=== PATIENT | female | born 1980 | race Caucasian/White ===

== ENCOUNTER 2020-03-26 04:58 | Outpatient (REF) | payer OTHER, SELFPAY ==
[2020-03-26 06:59] LABS: SARS COV2 PCR INHOUSE NEGATIVE (Negative)
== END 2020-03-26 04:59 | disposition home or self-care (01) ==
LOC: HO.LAB 04:58
PROVIDERS: Visit Provider Internal Medicine
DX: Z20.828 Contact with and (suspected) exposure to other viral communicable diseases (principal)
CPT/HCPCS: 87635

== ENCOUNTER 2020-03-30 09:53 | Outpatient (REF) | payer OTHER, SELFPAY | END 2020-03-30 09:54 | disposition home or self-care (01) | LOC: HO.LAB 09:53 | PROVIDERS: Visit Provider Internal Medicine | DX: Z20.828 Contact with and (suspected) exposure to other viral communicable diseases (principal) | CPT/HCPCS: 87635 ==

== ENCOUNTER 2024-04-23 03:42 | Inpatient (IN) | payer OTHER, SELFPAY ==
[2024-04-23] VITALS (19 sets, daily range): BP systolic 94–138; BP diastolic 30–84; PULSE 71–107; RESP 14–18; TEMP 36.5–37.2; O2SAT 91–99; BMI 47.0; BMI 47.1; BMI 50.4
--- NOTE | ~2024-04-23 | CT_ITS ---
EXAMINATION: CT ABDOMEN AND PELVIS WITH CONTRAST CLINICAL INFORMATION: Right lower quadrant pain. Question appendicitis COMPARISON: None available. TECHNIQUE: Multidetector volumetric images were obtained from the superior aspect of the liver through the pubic symphysis following administration 98 mL of Omnipaque 350 intravenous contrast. Sagittal and coronal reformatted images were obtained on the technologist's workstation. Oral contrast: No This CT examination was performed using dose optimization techniques as appropriate, variously including the following: *Automated exposure control *Adjustment of mA and/or kV according to patient size (this includes techniques or standardized protocols for targeted exams where dose is matched to indication/reason for exam; i.e. extremities or head) *Use of iterative reconstruction technique DLP: 1099 mGy-cm FINDINGS: LUNG BASES: The visualized lung bases are unremarkable. LIVER, GALLBLADDER, AND BILIARY TREE: The liver is normal in size, shape, and attenuation. No focal hepatic lesion or biliary ductal dilatation is present. The gallbladder is unremarkable with no evidence of radiopaque gallstones, gallbladder wall thickening, or obvious pericholecystic inflammatory changes. PANCREAS: Unremarkable. SPLEEN: Single punctate calcification which may represent a chronic calcified granuloma. Spleen is normal in size. ADRENAL GLANDS: Unremarkable. KIDNEYS AND URETERS: The kidneys are normal in size, shape, and attenuation. No hydronephrosis, hydroureter, or calculi seen. No perinephric stranding. BLADDER: Unremarkable. GASTROINTESTINAL TRACT: Mild colonic diverticulosis. The appendix is abnormally enlarged with an outer wall diameter of 17 mm. Reticulation of the knees appendiceal fat is noted. No free intraperitoneal fluid or gas collections. Vague hyperdensity is present in the lumen of the base of the appendix over a 7 mm diameter region may represent an appendicolith. ABDOMINAL WALL: No significant hernia is appreciated. LYMPH NODES: Normal. VASCULAR: Unremarkable. PELVIC VISCERA: Normal appearance of the uterus. No adnexal lesions. OSSEOUS STRUCTURES: No suspicious skeletal lesions. Partially visualized moderate posterior broad-based disc-osteophyte complex L5-S1. CT/CT abdomen pelvis w IV con IMPRESSION: 1. Acute uncomplicated appendicitis. The appendix is abnormally enlarged with an outer wall diameter of 17 mm. Inflammatory changes of the mesoappendix are present. No evidence of appendiceal perforation. A possible 7 mm diameter appendicolith is present in the lumen of the base of the appendix. 2. Mild colonic diverticulosis. Partially visualized moderate posterior broad-based disc-osteophyte complex at L5-S1. Electronically signed by: Stone Benitez MD 04/23/2024 06:46 AM DONY SAUNDERS
[2024-04-23 04:05] LABS: Basophils Absolute Auto 0.1 X10*3/uL (0.0-0.2); Basophils Percent Auto 0.6 % (0-2); Eosinophils Absolute Auto 0.3 X10*3/uL (0.0-0.4); Eosinophils Percent Auto 1.5 % (0-4); Hemoglobin 12.9 g/dl (12.0-16.0); Imm Gran Abs Auto 0.08 X10*3/uL (0.00-0.03); Imm Gran Pct Auto 0.5 % (0.0-0.4); Lymphocytes Absolute Auto 1.8 X10*3/uL (1.2-4.9); Lymphocytes Percent Auto 10.6 % (20-40); MANUAL DIFF FLAG NO; Mean Corpuscular HGB Conc 34.9 g/dl (31.0-35.0); Mean Corpuscular Hemoglobin 29.5 pg (27.0-33.0); Mean Corpuscular Volume 84.7 fL (80.0-98.0); Mean Platelet Volume 9.9 fL (9.4-12.3); Monocytes Absolute Auto 0.9 X10*3/uL (0.1-1.2); Monocytes Percent Auto 5.3 % (2-11); Neutrophils Absolute Auto 13.8 x10*3/uL (2.0-8.3); Neutrophils Percent Auto 81.5 % (45-73); Platelet Count 364 X10*3/uL (160-400); Red Blood Count 4.37 X10*6/uL (4.20-5.50); Red Cell Distribution Width 12.8 % (11.0-16.0); White Blood Count 16.9 X10*3/uL (4.8-10.8)
--- NOTE | 2024-04-23 04:18 | ED.ABDPAIN ---
HPI - Abdominal Pain General Chief Complaint: Abdominal Pain Stated Complaint: abd pain Time Seen by Provider: 04/23/24 04:04 Source: patient Mode of arrival: ambulatory Limitations: no limitations History of Present Illness ED Provider: anders VALENZUELA narrative: Patient with no significant past medical history noticed pain since 04:00 yesterday woke up from sleep with pain throughout the day patient continued to have pain in right side started upper abdomen obvious in lower abdomen associated with nausea poor appetite pain gets worse on ambulation no fever no chills no diarrhea no history of gallstones or kidney stones no urinary complaints Related Data Home Medications ?Medication ?Instructions ?Recorded ?Confirmed chlorthalidone 25 mg tablet 25 mg PO DAILY 04/23/24 lisinopril 40 mg tablet 40 mg PO DAILY 04/23/24 Allergies Allergy/AdvReac Type Severity Reaction Status Date / Time banana Allergy Itching Verified 04/23/24 03:53 peanut Allergy Itching Verified 04/23/24 03:53 Review of Systems Review of Systems Yes all other systems are reviewed and are negative PMFSH Social History Social History Smoked in Last 30 Days: No Use of substances other than those prescribed or required for medical reasons: No Advance Directives: No Advance Directives Information Provided: No Physical Exam ED Vital Signs: Vital Signs - 24 hr 04/23/24 03:50 04/23/24 06:23 04/23/24 06:35 Temperature 98.2 F 98.3 F Pulse Rate 99 73 Respiratory Rate 18 16 Blood Pressure 131/84 100/56 L 112/68 Pulse Oximetry 94 97 Oxygen Delivery Method Room Air Room Air 04/23/24 07:13 Temperature Pulse Rate Respiratory Rate 16 Blood Pressure Pulse Oximetry Oxygen Delivery Method BMI result Body Mass Index 47.0 Appearance: Alert. Oriented X3. No acute distress. Eyes: No pallor or icterus ENT: Pharynx normal. Oral Mucosa moist Neck: Normal inspection. Neck supple. CVS: Normal heart rate and rhythm. Pulses normal. Respiratory: No respiratory distress. Equal air entry bilateral, no wheezing/rales/rhonchi Abdomen: Soft , tenderness right lower quadrant with guarding and rebound tenderness also mild tenderness right upper quadrant Bowel sounds are present, no mass palpable, no CVA tenderness Skin: Skin warm and dry. Normal skin color. Normal skin turgor. Extremities: No lower extremity edema. No calf tenderness Neuro: Oriented X 3. No motor deficit. Medical Decision Making Medical Decision Making [facility] Narrative: Patient with acute uncomplicated appendicitis will admit to surgical team case discussed with Dr. Chairez Differential Diagnosis Differential Diagnoses: The differential diagnosis associated with the presentation includes Appendicitis/diverticulitis/cholelithiasis Consult Healthcare Provider Management of the patient was discussed with: Diesel Technician Mechanic Lab Data [facility] Lab Attestation statement: I reviewed the patient's lab results. 04/23/24 04:01 04/23/24 04:01 Labs: Lab Results 04/23/24 04/23/24 04/23/24 Range/Units 04:01 04:01 05:01 WBC 16.9 H (4.8-10.8) X10*3/uL RBC 4.37 (4.20-5.50) X10*6/uL Hgb 12.9 (12.0-16.0) g/dl Hct 37.0 (37.0-47.0) % MCV 84.7 (80.0-98.0) fL MCH 29.5 (27.0-33.0) pg MCHC 34.9 (31.0-35.0) g/dl RDW 12.8 (11.0-16.0) % Plt Count 364 (160-400) X10*3/uL MPV 9.9 (9.4-12.3) fL Immature Gran % (Auto) 0.5 H (0.0-0.4) % Neut % (Auto) 81.5 H (45-73) % Lymph % (Auto) 10.6 L (20-40) % [place] % (Auto) 5.3 (2-11) % Eos % (Auto) 1.5 (0-4) % Baso % (Auto) 0.6 (0-2) % Lymph # (Auto) 1.8 (1.2-4.9) X10*3/uL [place] # (Auto) 0.9 (0.1-1.2) X10*3/uL Eos # (Auto) 0.3 (0.0-0.4) X10*3/uL Baso # (Auto) 0.1 (0.0-0.2) X10*3/uL Abs Immat Gran (auto) 0.08 H (0.00-0.03) X10*3/uL Absolute Neuts (auto) 13.8 H (2.0-8.3) x10*3/uL Absolute Nucleated RBC 0.000 (0.0-0.012) X10*3/uL Nucleated RBC % (auto) 0.0 (0.0-0.2) /100WBC Sodium 135 (135-145) mmol/L Potassium 3.9 (3.3-5.1) mmol/L Chloride 102 (96-108) mmol/L Carbon Dioxide 24 (22-29) mmol/L Anion Gap 13 (12-20) BUN 17 H (9-16) mg/dL Creatinine 1.07 (0.5-1.4) mg/dL Estim Creat Clear Calc 94.8 Estimated GFR 55 Random Glucose 187 H (60-115) mg/dL Lactic Acid 1.7 (0.5-2.0) mmol/L Calcium 9.6 (8.4-10.2) mg/dL Total Bilirubin 0.5 (0.0-1.0) mg/dL Direct Bilirubin 0.2 (0.0-0.5) mg/dL AST 21 (5-31) U/L ALT 25 (0-31) U/L Alkaline Phosphatase 112 (39-117) U/L Total Protein 7.0 (6.5-8.0) g/dL Albumin 4.1 (3.5-5.0) g/dL Amylase 34 Cancelled (28-100) U/L Lipase 20 (8-78) U/L Urine Color Yellow Urine Appearance Clear Urine pH 5.5 (5.0-9.0) Ur Specific [place] 1.020 (1.005-1.025) Urine Protein Negative (Neg-Trace) mg/dL Urine Glucose (UA) Negative (Negative) mg/dL Urine Ketones Negative (Negative) mg/dL Urine Blood Negative (Negative) Urine Nitrite Negative (Negative) Ur Leukocyte Esterase Negative (Negative) Urine RBC 0-2 (0-2) /HPF Urine WBC 0-5 (0-5) /HPF Ur Squamous Epith Cells 0-2 (0-2) /HPF Urine Bacteria Trace (None Seen) Hyaline Casts 0-2 (0-2) /LPF Urine Test NEGATIVE (NEGATIVE) Independent Interpretation I performed an independent interpretation of an: CT Scan Radiology Impression Discussion of test interpretation with radiology: I have reviewed the radiologist's reading. Radiologist Impression: [address] [address] [address] Scan Report Signed with [place] Patient: Lenin Jaime MR#: [id number] : 1980 Acct:[id number] Age/Sex: 44 / F ADM Date: 04/23/24 Loc: HO.ED Attending Dr: Ordering Physician: Roge Cooper MD Date of Service: 04/23/24 Procedure(s): CT abdomen pelvis w IV con Accession Number(s): [id number] cc: Kavita Carmen, CARYN; Roge Cooper MD~ ADDENDUM ADDENDUM #1 This critical result was discussed with Roge Cooper MD MD by telephone at 04/23/2024 6:57 AM EST and it was ascertained that the content and urgency of the report was understood at the time of direct communication. Electronically signed by: Stone Benitez MD 04/23/2024 06:57 AM EST Addendum Dictated By: Stone Benitez MD Addendum Signed By: <Electronically signed by Stone Benitez MD in OV> 04/23/24 06 Addendum Cosigned By: DD/ TD/TT: 04/23/24 EXAMINATION: CT ABDOMEN AND PELVIS WITH CONTRAST CLINICAL INFORMATION: Right lower quadrant pain. Question appendicitis COMPARISON: None available. TECHNIQUE: Multidetector volumetric images were obtained from the superior aspect of the liver through the pubic symphysis following administration 98 mL of Omnipaque 350 intravenous contrast. Sagittal and coronal reformatted images were obtained on the technologist's workstation. Oral contrast: No This CT examination was performed using dose optimization techniques as appropriate, variously including the following: *Automated exposure control *Adjustment of mA and/or kV according to patient size (this includes techniques or standardized protocols for targeted exams where dose is matched to indication/reason for exam; i.e. extremities or head) *Use of iterative reconstruction technique DLP: 1099 mGy-cm FINDINGS: LUNG BASES: The visualized lung bases are unremarkable. LIVER, GALLBLADDER, AND BILIARY TREE: The liver is normal in size, shape, and attenuation. No focal hepatic lesion or biliary ductal dilatation is present. The gallbladder is unremarkable with no evidence of radiopaque gallstones, gallbladder wall thickening, or obvious pericholecystic inflammatory changes. PANCREAS: Unremarkable. SPLEEN: Single punctate calcification which may represent a chronic calcified granuloma. Spleen is normal in size. ADRENAL GLANDS: Unremarkable. KIDNEYS AND URETERS: The kidneys are normal in size, shape, and attenuation. No hydronephrosis, hydroureter, or calculi seen. No perinephric stranding. BLADDER: Unremarkable. GASTROINTESTINAL TRACT: Mild colonic diverticulosis. The appendix is abnormally enlarged with an outer wall diameter of 17 mm. Reticulation of the knees appendiceal fat is noted. No free intraperitoneal fluid or gas collections. Vague hyperdensity is present in the lumen of the base of the appendix over a 7 mm diameter region may represent an appendicolith. ABDOMINAL WALL: No significant hernia is appreciated. LYMPH NODES: Normal. VASCULAR: Unremarkable. PELVIC VISCERA: Normal appearance of the uterus. No adnexal lesions. OSSEOUS STRUCTURES: No suspicious skeletal lesions. Partially visualized moderate posterior broad-based disc-osteophyte complex L5-S1. CT/CT abdomen pelvis w IV con IMPRESSION: 1. Acute uncomplicated appendicitis. The appendix is abnormally enlarged with an outer wall diameter of 17 mm. Inflammatory changes of the mesoappendix are present. No evidence of appendiceal perforation. A possible 7 mm diameter appendicolith is present in the lumen of the base of the appendix. 2. Mild colonic diverticulosis. Partially visualized moderate posterior broad-based disc-osteophyte complex at L5-S1. Electronically signed by: Stone Benitez MD 04/23/2024 06:46 AM [facility] Medications Administered Discontinued Medications Generic Name Dose Route Start Last Admin Trade Name Freq PRN Reason Stop Dose Admin Sodium Chloride 1,000 mls @ 999 mls/hr 04/23/24 04:22 04/23/24 06:59 Ns IV 04/23/24 05:22 Infused .Q1H1M ONE Infusion Piperacillin Sod/Tazobactam 50 mls @ 100 mls/hr 04/23/24 06:01 04/23/24 06:59 Sod 3.375 gm/ Sodium Chloride IV 04/23/24 06:30 Infused ONCE ONE Infusion Iohexol 100 ml 04/23/24 06:00 04/23/24 06:02 Iohexol 350 Mg/Ml 100 Ml Infus..Btl IV 04/23/24 06:01 100 ml ONCE ONE Administration Morphine Sulfate 4 mg 04/23/24 04:22 04/23/24 05:08 Morphine Sulfate 4 Mg/Ml Cartridge IVPUSH 04/23/24 04:23 4 mg ONCE ONE Administration Protocol Morphine Sulfate 4 mg 04/23/24 07:06 04/23/24 07:13 Morphine Sulfate 4 Mg/Ml Cartridge IVPUSH 04/23/24 07:07 4 mg ONCE ONE Administration Protocol Ondansetron HCl 4 mg 04/23/24 04:22 04/23/24 05:08 Ondansetron Hcl 4 Mg/2 Ml Vial IVPUSH 04/23/24 04:23 4 mg ONCE ONE Administration Ondansetron HCl 4 mg 04/23/24 07:06 04/23/24 07:11 Ondansetron Hcl 4 Mg/2 Ml Vial IVPUSH 04/23/24 07:07 4 mg ONCE ONE Administration Discharge Plan Discharge Clinical Impression: Acute appendicitis Prescriptions: No Action chlorthalidone 25 mg tablet 25 mg PO DAILY lisinopril 40 mg tablet 40 mg PO DAILY Print Language: [place]
[2024-04-23 04:22] LABS: Alanine Aminotransferase 25 U/L (0-31); Albumin Level 4.1 g/dL (3.5-5.0); Alkaline Phosphatase 112 U/L (39-117); Amylase 34 U/L (28-100); Anion Gap 13 (12-20); Aspartate Amino Transferase 21 U/L (5-31); Bilirubin Direct 0.2 mg/dL (0.0-0.5); Bilirubin Total 0.5 mg/dL (0.0-1.0); Blood Urea Nitrogen 17 mg/dL (9-16); Calcium 9.6 mg/dL (8.4-10.2); Carbon Dioxide 24 mmol/L (22-29); Chloride 102 mmol/L (96-108); Creatinine Clr Calc Pharmacy 94.8; Estimated Glomerular Filt Rate 55; Glucose Random 187 mg/dL (60-115); Lipase 20 U/L (8-78); Potassium 3.9 mmol/L (3.3-5.1); Sodium 135 mmol/L (135-145)
[2024-04-23 05:08] LABS: Appearance Urine Clear; Color Urine Yellow; Glucose Urine UA Negative (Negative); Leukocyte Esterase Urine Negative (Negative); Nitrite Urine Negative (Negative); PH 5.5 (5.0-9.0); Urine Blood Negative (Negative); Urine Ketones Negative (Negative); Urine Protein Negative (Neg-Trace)
[2024-04-23] MEDS: 0.9 % Sodium Chloride 1,000 ML 999 ML IV (05:08)
[2024-04-23] MEDS: ondansetron HCL 4 MG/2 ML VIAL IVPUSH ×3 (05:08→16:36)
[2024-04-23] MEDS: Morphine Sulfate 4 MG/ML CARTRIDGE IVPUSH ×2 (05:08→07:13)
[2024-04-23 05:11] LABS: Bacteria Urine Trace (None Seen); Hyaline Casts Urine 0-2 /LPF (0-2); RBC Urine 0-2 /HPF (0-2); Squamous Epithelial Cell Urine 0-2 /HPF (0-2); UPreg QC Valid YES; Urine Pregnancy NEGATIVE (NEGATIVE); WBC Urine 0-5 /HPF (0-5)
[2024-04-23 05:27] LABS: Lactic Acid 1.7 mmol/L (0.5-2.0)
[2024-04-23] MEDS: iohexoL 350 MG/ML 100 ML INFUS..BTL IV (06:02)
[2024-04-23] MEDS: Piperacillin Sodium/Tazobactam 3.375 GM in 0.9 % Sodium Chloride 50 ML IV ×4 (06:20→23:23)
--- NOTE | 2024-04-23 06:33 | PC.NURSE ---
per md mcnamara no blood cultures. iv abx given. ivf infusing.
--- NOTE | 2024-04-23 08:25 | PC.NURSE ---
Provider aware of low BP, fluids started. Pt alert and oriented, pain 8/10 on right sided ABD
[2024-04-23] MEDS: Prochlorperazine Edisylate 10 MG/2 ML VIAL IVPUSH (08:32)
[2024-04-23] MEDS: fentaNYL citrate/PF 100 MCG/2 ML VIAL 50 MCG IVPUSH (08:33)
[2024-04-23] MEDS: Lactated Ringers 1,000 ML 999 ML IV (08:36)
--- NOTE | 2024-04-23 08:52 | PC.NURSE ---
Pt placed on 2L o2 NC due to desats into 92%, improved quickly
--- NOTE | 2024-04-23 10:01 | PHA.MEDREC ---
Addendum entered by Sarthak Correia 04/23/24 10:12: reviewed Original Note: Pharmacy Consult ? Medication Reconciliation Pharmacy has completed the medication reconciliation. Spoke to patient to confirm med list. Patient was able to tell me what medications she takes. The last time she took her medications was 04/23/24 in the morning.
[2024-04-23] MEDS: 0.9 % Sodium Chloride 1,000 ML 100 ML IVCONT ×2 (10:10→20:42)
--- NOTE | 2024-04-23 11:04 | PM.HPGS ---
History of Present Illness History of Present Illness Date of Service: 04/23/24 Chief complaint: abdo pain Narrative: Lenin Jaime is a 44 year old female who comes in after having abdominal pain which started yesterday more in the upper right side of her abdomen but now located to the right lower quadrant she was little concerned for appendicitis. Denies any fevers to throw up once no unusual diet or sick contacts. Here in the emergency room her white count is elevated and CT scan of her abdomen and pelvis shows thickened inflamed appendix consistent with appendicitis. Review of Systems Review of Systems: Yes all other systems are reviewed and are negative [facility] Social History Social History Smoked in Last 30 Days: No Use of substances other than those prescribed or required for medical reasons: No Advance Directives: No Advance Directives Information Provided: No Meds Allergies Allergy/AdvReac Type Severity Reaction Status Date / Time banana Allergy Itching Verified 04/23/24 03:53 peanut Allergy Itching Verified 04/23/24 03:53 Active Medications: Current Medications Acetaminophen (Acetaminophen 325 Mg Tablet) 650 mg PO Q6H PRN PRN Reason: Pain, Mild (Pain Scale 1-3), fever or headache Sodium Chloride (Ns) 1,000 mls @ 100 mls/hr IVCONT .Q10H [facility] Last Admin: 04/23/24 10:10 Dose: 100 mls/hr Piperacillin Sod/Tazobactam (Sod 3.375 gm/ Sodium Chloride) 50 mls @ 100 mls/hr IV Q6H A[facility] Melatonin (Melatonin 3 Mg Tablet) 6 mg PO BEDTIME PRN PRN Reason: Insomnia Morphine Sulfate (Morphine Sulfate 4 Mg/Ml Cartridge) 3 mg IVPUSH Q4H PRN; Protocol PRN Reason: Pain, Severe (Pain Scale 7-10) Sodium Chloride (0.9 % Sodium Chloride Flush 3 Ml Syringe) 3 ml IVFLUSH QSHIFT [facility] Home Medications ?Medication ?Instructions ?Recorded ?Confirmed ?Last Taken ?Type chlorthalidone 25 mg tablet 25 mg PO DAILY 04/23/24 04/23/24 04/22/24 History cholecalciferol (vitamin D3) 50 50 mcg PO DAILY 04/23/24 04/23/24 04/22/24 History mcg (2,000 unit) tablet (Vitamin D3) famotidine 20 mg tablet 20 mg PO DAILY 04/23/24 04/23/24 04/22/24 History lisinopril 40 mg tablet 40 mg PO DAILY 04/23/24 04/23/24 04/22/24 History Physical Exam Vital Signs: Vital Signs: Last Vital Signs Temp 98 F 04/23/24 10:54 Pulse 79 04/23/24 10:54 Resp 14 04/23/24 10:54 BP 105/44 L 04/23/24 10:54 Pulse Ox 99 04/23/24 10:54 O2 Del Method Nasal Cannula 04/23/24 10:54 O2 Flow Rate 2 04/23/24 10:54 BMI result Body Mass Index 47.0 Const: General: cooperative, healthy appearing, comfortable and acute distress mild Nutritional Appearance: obese Orientation/consciousness: oriented to person, oriented to place and oriented to time Neck: Other: Soft and supple Resp: Effort & Inspection: normal respiratory effort and able to speak in complete sentences Auscultation: clear to auscultation bilaterally Cardio: Rate: regular rate Rhythm: regular rhythm GI: Other: Abdomen is soft nondistended tender in the right lower quadrant with guarding rebound tenderness to the right lower quadrant active bowel sounds Skin: Other: Nonicteric Neuro: General: oriented to person, oriented to place and oriented to time Extrem: General: Yes normal to inspection Psych: Appearance: grossly normal Mental Status: mental status grossly normal Speech and movement: Normal speech and movement present Affect: normal affect Attitude: cooperative Thought process: Normal thought process present Thought content: Normal thought content present Insight: Good insight present (Psych) Judgement: Good judgement present (Psych) Results Results Labs: Short CBC 04/23/24 Range/Units 04:01 WBC 16.9 H (4.8-10.8) X10*3/uL Hgb 12.9 (12.0-16.0) g/dl Hct 37.0 (37.0-47.0) % Plt Count 364 (160-400) X10*3/uL BMP 04/23/24 04:01 Sodium 135 Potassium 3.9 Chloride 102 Carbon Dioxide 24 BUN 17 H Creatinine 1.07 Calcium 9.6 Liver Function 04/23/24 Range/Units 04:01 Total Bilirubin 0.5 (0.0-1.0) mg/dL Direct Bilirubin 0.2 (0.0-0.5) mg/dL AST 21 (5-31) U/L ALT 25 (0-31) U/L Alkaline Phosphatase 112 (39-117) U/L Albumin 4.1 (3.5-5.0) g/dL Urine 04/23/24 Range/Units 05:01 Urine Color Yellow Urine Appearance Clear Urine pH 5.5 (5.0-9.0) Ur Specific [place] 1.020 (1.005-1.025) Urine Protein Negative (Neg-Trace) mg/dL Urine Glucose (UA) Negative (Negative) mg/dL Urine Test NEGATIVE (NEGATIVE) Abdomen CT scan report/results: report reviewed and image reviewed CT scan - pelvis: report reviewed and image reviewed Assessment and Plan (1) Acute appendicitis: Status: Acute Plan 44-year-old female with right lower quadrant pain elevated white count CT scan revealing distended thickened appendix all consistent with acute appendicitis. Plan to admit NPO IV fluids IV Zosyn IV pain meds and plan for laparoscopic appendectomy later today. Risks and benefits were discussed with the patient including but not limited to bleeding infection possible bowel injury possible open procedure possible stump leak and she agrees to proceed Quality Stroke Does the patient have a stroke diagnosis?: No VTE Prior VTE?: No VTE Risk Level:: Surgical - low VTE Device Contraindication: N/A - Device Ordered VTE Drug Contraindication: Treatment Not Indicated Procedures Date of Service Date of Service: 04/23/24
--- NOTE | 2024-04-23 14:15 | PC.NURSE ---
Report given to TREVOR Huff @[id number]
[2024-04-23] MEDS: Morphine Sulfate 4 MG/ML CARTRIDGE 3 MG IVPUSH (14:28)
--- NOTE | 2024-04-23 16:14 | P.CONAN_ITS ---
HPI - Anesthesia Eval Consult details Narrative: 44 yo female patient for Laparoscopic Appendectomy PMFSH Active Problems Active Problems: All Active Problems Acute appendicitis (Acute) HTN GERD Morbid Obesity BMI 47 Denies ISABEL Past Medical History Patient : No Family History Family history of problems with anesthesia: No Surgical History History of Problems with Anesthesia: No Social History Social History Are you a primary mall plant caretaker to a significant other at home: No Do you presently have visiting nurse or other home services: No Comment: SSA 00 Patient Tobacco Use Status: Never used Tobacco Meds Allergies Allergy/AdvReac Type Severity Reaction Status Date / Time banana Allergy Itching Verified 04/23/24 03:53 peanut Allergy Itching Verified 04/23/24 03:53 Active Medications: Current Medications Acetaminophen (Acetaminophen 325 Mg Tablet) 650 mg PO Q6H PRN PRN Reason: Pain, Mild (Pain Scale 1-3), fever or headache Sodium Chloride (Ns) 1,000 mls @ 100 mls/hr IVCONT .Q10H [facility] Last Admin: 04/23/24 10:10 Dose: 100 mls/hr Piperacillin Sod/Tazobactam (Sod 3.375 gm/ Sodium Chloride) 50 mls @ 100 mls/hr IV Q6H [facility] Last Infusion: 04/23/24 13:40 Dose: Infused Melatonin (Melatonin 3 Mg Tablet) 6 mg PO BEDTIME PRN PRN Reason: Insomnia Morphine Sulfate (Morphine Sulfate 4 Mg/Ml Cartridge) 3 mg IVPUSH Q4H PRN; Protocol PRN Reason: Pain, Severe (Pain Scale 7-10) Last Admin: 04/23/24 14:28 Dose: 3 mg Sodium Chloride (0.9 % Sodium Chloride Flush 3 Ml Syringe) 3 ml IVFLUSH QSHIFT [facility] Home Medications ?Medication ?Instructions ?Recorded ?Confirmed ?Last Taken ?Type chlorthalidone 25 mg tablet 25 mg PO DAILY 04/23/24 04/23/24 04/22/24 History cholecalciferol (vitamin D3) 50 50 mcg PO DAILY 04/23/24 04/23/24 04/22/24 History mcg (2,000 unit) tablet (Vitamin D3) famotidine 20 mg tablet 20 mg PO DAILY 04/23/24 04/23/24 04/22/24 History lisinopril 40 mg tablet 40 mg PO DAILY 04/23/24 04/23/24 04/22/24 History Exam Height,Weight and Vital Signs: Height 5 ft 7 in Weight 136.253 kg Last Vital Signs Temp 98 F 04/23/24 10:54 Pulse 102 H 04/23/24 14:18 Resp 16 04/23/24 14:18 BP 116/75 04/23/24 14:18 Pulse Ox 94 04/23/24 14:18 O2 Del Method Room Air 04/23/24 14:18 O2 Flow Rate 2 04/23/24 10:54 Temp Pulse Resp BP Pulse Ox O2 Del Method O2 Flow Rate 98.9 F 85 16 138/71 95 Room Air 2 04/23/24 16:58 04/23/24 16:58 04/23/24 16:58 04/23/24 16:58 04/23/24 16:58 04/23/24 16:58 04/23/24 10:54 Pertinent Lab Results Pertinent Lab Results: Laboratory Tests 04/23/24 04/23/24 04/23/24 04:01 04:01 05:01 WBC 16.9 H RBC 4.37 Hgb 12.9 Hct 37.0 MCV 84.7 MCH 29.5 MCHC 34.9 RDW 12.8 Plt Count 364 MPV 9.9 Immature Gran % (Auto) 0.5 H Neut % (Auto) 81.5 H Lymph % (Auto) 10.6 L [place] % (Auto) 5.3 Eos % (Auto) 1.5 Baso % (Auto) 0.6 Lymph # (Auto) 1.8 [place] # (Auto) 0.9 Eos # (Auto) 0.3 Baso # (Auto) 0.1 Abs Immat Gran (auto) 0.08 H Absolute Neuts (auto) 13.8 H Absolute Nucleated RBC 0.000 Nucleated RBC % (auto) 0.0 Sodium 135 Potassium 3.9 Chloride 102 Carbon Dioxide 24 Anion Gap 13 BUN 17 H Creatinine 1.07 Estim Creat Clear Calc 94.8 Estimated GFR 55 Random Glucose 187 H Lactic Acid 1.7 Calcium 9.6 Total Bilirubin 0.5 Direct Bilirubin 0.2 AST 21 ALT 25 Alkaline Phosphatase 112 Total Protein 7.0 Albumin 4.1 Amylase 34 Cancelled Lipase 20 Urine Color Yellow Urine Appearance Clear Urine pH 5.5 Ur Specific [place] 1.020 Urine Protein Negative Urine Glucose (UA) Negative Urine Ketones Negative Urine Blood Negative Urine Nitrite Negative Ur Leukocyte Esterase Negative Urine RBC 0-2 Urine WBC 0-5 Ur Squamous Epith Cells 0-2 Urine Bacteria Trace Hyaline Casts 0-2 Urine Test NEGATIVE Airway Mallampati Class: II TM Dist: >3cm Neck ROM: Full Loose/Missing/Broken Teeth: No (Crowns intact. Denies broken or loose teeth) Heart: RRR Lungs: CTAB Assessment and Plan Assessment Anesthesia Assessment: Anesthesia Plan Discussed and Chart Reviewed Final Anesthetic Review Family History of Problems with Anesthesia: No History of Problems with Anesthesia: No NPO: Yes ASA Class: III and Emergency Final Preanesthetic Review: No Changes in Pt Med Stat, Meds/Allgs Chart Reviewed, Consent Obtained/Reviewed and Anes Risks/Benef Reviewed Patient Risk: Intermediate Procedure Risk: Low Assessment/Block/Sedation in SS: Assess/Block/Sedation-SS Anesthetic Plan Anesthetic Plan: GA Disposition: Standard PACU
--- NOTE | 2024-04-23 18:11 | HO.ANESPROP2 ---
[facility] Active Problems Active Problems: All Active Problems Acute appendicitis (Acute) Past Medical History Functional capacity: independent ambulation Patient : No Family History Family history of problems with anesthesia: No Surgical History History of Problems with Anesthesia: No Social History Social History Are you a primary director of career services to a significant other at home: No Do you presently have visiting nurse or other home services: No Comment: SSA 00 Patient Tobacco Use Status: Never used Tobacco Meds Allergies Allergy/AdvReac Type Severity Reaction Status Date / Time banana Allergy Itching Verified 04/23/24 03:53 peanut Allergy Itching Verified 04/23/24 03:53 Active Medications: Current Medications Acetaminophen (Acetaminophen 325 Mg Tablet) 650 mg PO Q6H PRN PRN Reason: Pain, Mild (Pain Scale 1-3), fever or headache Fentanyl (Fentanyl Citrate/Pf 100 Mcg/2 Ml Vial) 25 mcg IVPUSH Q5M PRN PRN Reason: Pain, Moderate to Severe (Pain Scale 4-10) Stop: 04/23/24 23:09 Haloperidol Lactate (Haloperidol Lactate 5 Mg/Ml Vial) 1 mg IVPUSH ONCE PRN PRN Reason: intractable nausea Stop: 04/23/24 23:09 Sodium Chloride (Ns) 1,000 mls @ 100 mls/hr IVCONT .Q10H AISHA Last Admin: 04/23/24 10:10 Dose: 100 mls/hr Piperacillin Sod/Tazobactam (Sod 3.375 gm/ Sodium Chloride) 50 mls @ 100 mls/hr IV Q6H AISHA Last Infusion: 04/23/24 13:40 Dose: Infused Lactated Ringer's (Lr) 1,000 mls @ 100 mls/hr IVCONT .Q10H [facility]IS[facility] Melatonin (Melatonin 3 Mg Tablet) 6 mg PO BEDTIME PRN PRN Reason: Insomnia Morphine Sulfate (Morphine Sulfate 4 Mg/Ml Cartridge) 3 mg IVPUSH Q4H PRN; Protocol PRN Reason: Pain, Severe (Pain Scale 7-10) Last Admin: 04/23/24 14:28 Dose: 3 mg Ondansetron HCl (Ondansetron Hcl 4 Mg/2 Ml Vial) 4 mg IVPUSH Q4H PRN PRN Reason: Nausea and Vomiting Last Admin: 04/23/24 16:36 Dose: 4 mg Sodium Chloride (0.9 % Sodium Chloride Flush 3 Ml Syringe) 3 ml IVFLUSH QSHIFT REPLACED BY [facility] Home Medications ?Medication ?Instructions ?Recorded ?Confirmed ?Last Taken ?Type chlorthalidone 25 mg tablet 25 mg PO DAILY 04/23/24 04/23/24 04/22/24 History cholecalciferol (vitamin D3) 50 50 mcg PO DAILY 04/23/24 04/23/24 04/22/24 History mcg (2,000 unit) tablet (Vitamin D3) famotidine 20 mg tablet 20 mg PO DAILY 04/23/24 04/23/24 04/22/24 History lisinopril 40 mg tablet 40 mg PO DAILY 04/23/24 04/23/24 04/22/24 History Exam Height,Weight and Vital Signs: Height 5 ft 7 in Weight 136.5 kg Last Vital Signs Temp 98.9 F 04/23/24 16:58 Pulse 85 04/23/24 16:58 Resp 16 04/23/24 16:58 BP 138/71 04/23/24 16:58 Pulse Ox 95 04/23/24 16:58 O2 Del Method Room Air 04/23/24 16:58 O2 Flow Rate 2 04/23/24 10:54 Pertinent Lab Results Pertinent Lab Results: Laboratory Tests 04/23/24 04/23/24 04/23/24 04:01 04:01 05:01 WBC 16.9 H RBC 4.37 Hgb 12.9 Hct 37.0 MCV 84.7 MCH 29.5 MCHC 34.9 RDW 12.8 Plt Count 364 MPV 9.9 Immature Gran % (Auto) 0.5 H Neut % (Auto) 81.5 H Lymph % (Auto) 10.6 L [place] % (Auto) 5.3 Eos % (Auto) 1.5 Baso % (Auto) 0.6 Lymph # (Auto) 1.8 [place] # (Auto) 0.9 Eos # (Auto) 0.3 Baso # (Auto) 0.1 Abs Immat Gran (auto) 0.08 H Absolute Neuts (auto) 13.8 H Absolute Nucleated RBC 0.000 Nucleated RBC % (auto) 0.0 Sodium 135 Potassium 3.9 Chloride 102 Carbon Dioxide 24 Anion Gap 13 BUN 17 H Creatinine 1.07 Estim Creat Clear Calc 94.8 Estimated GFR 55 Random Glucose 187 H Lactic Acid 1.7 Calcium 9.6 Total Bilirubin 0.5 Direct Bilirubin 0.2 AST 21 ALT 25 Alkaline Phosphatase 112 Total Protein 7.0 Albumin 4.1 Amylase 34 Cancelled Lipase 20 Urine Color Yellow Urine Appearance Clear Urine pH 5.5 Ur Specific [place] 1.020 Urine Protein Negative Urine Glucose (UA) Negative Urine Ketones Negative Urine Blood Negative Urine Nitrite Negative Ur Leukocyte Esterase Negative Urine RBC 0-2 Urine WBC 0-5 Ur Squamous Epith Cells 0-2 Urine Bacteria Trace Hyaline Casts 0-2 Urine Test NEGATIVE Airway Mallampati Class: III TM Dist: >3cm Neck ROM: Full Heart: RRR Lungs: CTA Assessment and Plan Assessment Anesthesia Assessment: Anesthesia Plan Discussed and Chart Reviewed Final Anesthetic Review Family History of Problems with Anesthesia: No History of Problems with Anesthesia: No NPO: Yes ASA Class: III and Emergency Final Preanesthetic Review: Meds/Allgs Chart Reviewed and Consent Obtained/Reviewed Patient Risk: Intermediate Procedure Risk: Intermediate Anesthetic Plan Anesthetic Plan: GA Disposition: Standard PACU
--- NOTE | 2024-04-23 20:09 | W.PM.OPN ---
Operative Note Operative Note Date of Service: 04/23/24 Narrative: Preoperative diagnosis--acute appendicitis Postoperative diagnosis--acute appendicitis Procedure done--laparoscopic appendectomy [facility] Anesthesia--general endotracheal tube anesthesia Patient is a 44-year-old female who has had about a day and a half history of right-sided abdominal pain settling in the right lower quadrant elevated white count and CT scan showing inflamed thickened appendix with possible fecalith. As a result she comes in for laparoscopic appendectomy Findings--acutely inflamed appendix Procedure-- Patient was brought to the operative room under Anesthesia guidance was intubated. She had compression stockings placed before induction received preoperative antibiotics in the emergency room. Her abdomen was prepped and draped in standard surgical fashion. An infraumbilical incision was created after numbing up the area with a 0.25% Marcaine with epinephrine. Dissection was carried down to the anterior abdominal wall fascia which was grasped with Yisel's and transected. Mcdowell trocar introduced and pneumoperitoneum established to 15 mmHg pressure. Then 2 5 mm ports were then placed under direct visualization using local. One was in the suprapubic area and 1 was in the left lower quadrant area. Patient was positioned left side down little bit and the appendix area identified in the right lower quadrant are lying little bit lateral to the cecum. The tip was little difficult to grasp and we dissected this out and then eventually was able to lift it a little bit more and then dissect out the appendiceal cecal base. In doing so the LigaSure was used to dissect the lateral peritoneal reflection to be able to rotate the cecum a little more medially and to take down little bit of the appendix mesentery. We were then able to free up the appendix and elevated such that it was just holding onto the base at the appendiceal cecal junction. The Endo-JERZY purple 45 load was then fired across the base of the appendix onto the cecum and the appendix was removed in a bag from the infraumbilical port site. Pneumoperitoneum was then reestablished and the right lower quadrant area was examined. The stapled line looked good and the mesentery was fine without any evidence of bleeding. Little bit suction irrigation was carried out but there had not been any spillage of any infected or fecal material. Ports were then removed under direct visualization in the infraumbilical port site was closed with several sutures of 0 Vicryl on . The patient was really quite deep but the umbilical site but a good fascial closure was carried out in 2 layers. 4-0 Monocryl in the interrupted subcuticular fashion was used to approximate the skin edges and Steri-Strips placed with dry Tegaderm dressings. At the end of the case all sponge instrument needle counts were correct estimated blood loss was minimal the specimen sent was the appendix. The patient was extubated returned stable to recovery room
[2024-04-23] MEDS: 0.9 % Sodium Chloride Flush 3 ML SYRINGE IVFLUSH (20:43)
[2024-04-24 03:26] VITALS: BP 100/57; PULSE 79; RESP 18; TEMP 36.5; O2SAT 93
[2024-04-24] MEDS: Piperacillin Sodium/Tazobactam 3.375 GM in 0.9 % Sodium Chloride 50 ML IV (05:29)
[2024-04-24] MEDS: 0.9 % Sodium Chloride 1,000 ML 100 ML IVCONT (06:23)
[2024-04-24 07:25] VITALS: BP 123/62; PULSE 73; RESP 18; TEMP 36.6; O2SAT 96
--- NOTE | 2024-04-24 07:28 | PM.PNGS ---
Subjective Subjective Date of Service: 04/24/24 Interval history: Patient was status post laparoscopic appendectomy last evening. Uneventful night. Patient tolerated some solids last p.m.. As awaiting breakfast. Some incisional discomfort. Physical Exam Vital Signs: Vital Signs: Last Vital Signs Temp 97.7 F 04/24/24 03:26 Pulse 79 04/24/24 03:26 Resp 18 04/24/24 03:26 BP 100/57 L 04/24/24 03:26 Pulse Ox 93 04/24/24 03:26 O2 Del Method Room Air 04/24/24 03:26 O2 Flow Rate 2 04/23/24 19:59 BMI result Body Mass Index 50.4 GI: Other: Abdomen corpulent, soft. All incision sites clean dry and intact Objective Data Active Medications Acetaminophen (Acetaminophen 325 Mg Tablet) 650 mg PO Q6H PRN PRN Reason: Pain, Mild (Pain Scale 1-3), fever or headache Sodium Chloride (Ns) 1,000 mls @ 100 mls/hr IVCONT .Q10H [facility] Last Admin: 04/24/24 06:23 Dose: 100 mls/hr Documented By: EMIL Piperacillin Sod/Tazobactam (Sod 3.375 gm/ Sodium Chloride) 50 mls @ 100 mls/hr IV Q6H [facility] Last Infusion: 04/24/24 05:59 Dose: Infused Documented By: EMIL Lisinopril (Lisinopril 40 Mg Tablet) 40 mg PO DAILY [facility]; Protocol Melatonin (Melatonin 3 Mg Tablet) 6 mg PO BEDTIME PRN PRN Reason: Insomnia Morphine Sulfate (Morphine Sulfate 4 Mg/Ml Cartridge) 3 mg IVPUSH Q4H PRN; Protocol PRN Reason: Pain, Severe (Pain Scale 7-10) Last Admin: 04/23/24 14:28 Dose: 3 mg Documented By: CHADWICK Naloxone HCl (Naloxone Hcl 0.4 Mg/Ml Vial) 0.04 mg IVPUSH Q5M PRN PRN Reason: Excessive sedation or RR < 8 Ondansetron HCl (Ondansetron Hcl 4 Mg/2 Ml Vial) 4 mg IVPUSH Q4H PRN PRN Reason: Nausea and Vomiting Last Admin: 04/23/24 16:36 Dose: 4 mg Documented By: ZACHARY Oxycodone HCl (Oxycodone Hcl Immed Release 5 Mg Tablet) 5 mg PO Q4H PRN PRN Reason: Pain, Mild (Pain Scale 1-3) Oxycodone HCl (Oxycodone Hcl Immed Release 5 Mg Tablet) 10 mg PO Q4H PRN PRN Reason: Pain, Moderate(Pain Scale 4-6) Sodium Chloride (0.9 % Sodium Chloride Flush 3 Ml Syringe) 3 ml IVFLUSH QSHIFT [facility]IS[facility] Last Admin: 04/24/24 07:13 Dose: Not Given Documented By: DESI Non-Admin Reason: IV Running Labs 04/23/24 04:01 04/23/24 04:01 Procedures Date of Service Date of Service: 04/24/24 Progress Note: A&P Assessment and plan (1) Postop check: Status: Acute Plan Current plan is to encourage p.o., incentive spirometry, ambulate, and tentatively plan for discharge today. Discharge instructions were reviewed with the patient. Patient's significant other was also present. Time Spent With Patient Time: Total time managing care of this patient today ____ minutes. Quality Stroke Does the patient have a stroke diagnosis?: No VTE Prior VTE?: No VTE Risk Level:: Surgical - low VTE Device Contraindication: N/A - Device Ordered VTE Drug Contraindication: Treatment Not Indicated
--- NOTE | 2024-04-24 09:08 | HO.POSTANES ---
Post Anesthesia Evaluation Post Anesthesia Evaluation Date of Service: 04/23/24 Vital Signs: Vital Signs Temp Pulse Resp BP Pulse Ox O2 Del Method 04/24/24 07:25 97.8 F 73 18 123/62 96 Room Air 04/24/24 03:26 97.7 F 79 18 100/57 L 93 Room Air 04/23/24 23:22 98.0 F 94 16 107/51 L 92 Room Air Anesthesia: General Mental Status: Awake Pain Control: Satisfactory Hydration: Adequate Anesthesia-Related Issues: No Anes. Related Issues
[2024-04-24] MEDS: oxyCODONE HCl Immed Release 5 MG TABLET PO (09:10)
[2024-04-24] MEDS: lisinopriL 40 MG TABLET PO (09:10)
--- NOTE | 2024-04-24 09:12 | MHC.CM.PN ---
Female 44 S/P gastric sleeve She lives with her spouse. She is independent with all functional mobility. A HCP has been documented . dp home self care spouse will transport home.
--- NOTE | 2024-04-24 10:06 | P.DS_ITS ---
DS: Providers Provider Date of Service: 04/24/24 Date of admission: 04/23/24 08:26 Date of discharge: 04/24/24 Primary care physician: YULIA Brown ND Attending physician on admission: Tg Chairez Attending physician on discharge: Kota Barber DS: Diagnosis Discharge Diagnosis (1) Postop check: Status: Acute DS: Summary Hospital Course Hospital Course: HPI AT ADMISSION: Lenin Jaime is a 44 year old female who comes in after having abdominal pain which started yesterday more in the upper right side of her abdomen but now located to the right lower quadrant she was little concerned for appendicitis. Denies any fevers to throw up once no unusual diet or sick contacts. Here in the emergency room her white count is elevated and CT scan of her abdomen and pelvis shows thickened inflamed appendix consistent with appendicitis. HOSPITAL COURSE: The patient was admitted to the surgical service for further treatment of the acute appendicitis. She elected to proceed with laparoscopic appendectomy. She was added onto the OR schedule for that day. On 04/23/24, a laparoscopic appendectomy was performed by Dr. Barber without complication. The patient tolerated the procedure well. She had an uncomplicated recovery course. On POD #1, she felt well and was tolerating a solid diet without nausea or vomiting, had good pain control and was ambulating without difficulty. She was hemodynamically stable. Her abdomen was benign with appropriate post op tenderness and clean and intact dressings. She felt ready for discharge. She was discharged to home on 04/24/24 in stable condition. She is to follow up in the office in 1 week. Status at Discharge Functional status at discharge: independent ambulation Overall status at discharge: patient is progressing back to baseline Time Attestation Discharge Coordination Time (in mins): 30 Quality: Safe Use of Opioids Does Pt have an Active Cancer Diagnosis on the Problem List?: No Quality: Stroke Does the patient have a stroke diagnosis?: No Physical Exam Vital Signs: Vital Signs: Last Vital Signs Temp 97.8 F 04/24/24 07:25 Pulse 73 04/24/24 07:25 Resp 18 04/24/24 07:25 BP 123/62 04/24/24 07:25 Pulse Ox 96 04/24/24 07:25 O2 Del Method Room Air 04/24/24 07:25 O2 Flow Rate 2 04/23/24 19:59 BMI result Body Mass Index 50.4 Const: General: comfortable, no acute distress and alert Orientation/consciousness: patient oriented x3 GI: Inspection: No distended and Yes incision (dressings intact and clean) Palpation (GI): Soft to palpation and no guarding Neuro: General: patient oriented x3 DS: Data Data Completed and Pending Completed studies during hospitalization [Text1]: 04/23/24 18:43 Surgical [PTH] Routine Appendix, appendectomy: Acute appendicitis with focal necrosis, extending to the proximal margin. Procedures Resection of Appendix, Percutaneous Endoscopic Approach (04/23/24) Discharge Plan Discharge Anticipated Discharge Date/Time: 04/24/24 12:29 Patient Disposition: Home, Self-Care Discharge Diagnosis: Acute appendicitis Referrals: Kavita Carmen PA, [place] [Primary Care Provider] - 1 Week Kota Barber MD [Physician] - 1 Week Discharge Medications: Continued chlorthalidone 25 mg tablet 25 mg PO DAILY lisinopril 40 mg tablet 40 mg PO DAILY famotidine 20 mg Tablet 20 mg PO DAILY cholecalciferol (vitamin D3) [Vitamin D3] 50 mcg (2,000 unit) Tablet 50 mcg PO DAILY Discharge Orders: Discharge Order (Routine); Ordered 04/24/24 Ordered By: Kota Barber Diet: Advance to usual diet Activity on Discharge: No heavy lifting Stand Alone Forms: Patient Portal Discharge page Print Language: [place] Activity Restrictions/Additional Instructions: Ice to wound 20 minutes several times today and tomorrow. May shower tomorrow. Remove outside dressing only. Leave Steri-Strips intact. No strenuous activities Care Plan Goals: Returned to baseline Health Concerns: No acute concerns Plan of Treatment: Convalescence Assessment: Status Discharge Date/Time: 04/24/24 10:16
== END 2024-04-24 10:16 | disposition home or self-care (01) | DRG 399 ==
LOC: HO.ED 04:27 → HO.EDOVER 08:33 → HO.SSSA 13:58 → HO.S3 16:29
PROVIDERS: Admitting Provider Surgery; Emergency Provider Internal Medicine; PCP Physician Assistant; Visit Provider Surgery
PROC: 0DTJ4ZZ Resection of Appendix, Percutaneous Endoscopic Approach (ICD-10-PCS; CPT 44970; principal; 2024-04-23 16:30)
DX: K35.80 Unspecified acute appendicitis (principal); Z79.899 Other long term (current) drug therapy
CPT/HCPCS: 44970; 36415; 74177; 80053; 81001; 81025; 82150; 82248; 83605; 83690; 85025; 88304; 99285; J0131; J0330; J0737; J1100; J2003; J2004; J2270; J2405; J2543; J2704; J3010; J7120; Q9967

== ENCOUNTER → 2024-04-23 08:26 | Outpatient (BNV) | payer OTHER, SELFPAY | PROVIDERS: Admitting Provider Surgery; Emergency Provider Internal Medicine; PCP Physician Assistant; Visit Provider Surgery | DX: Z09 Encounter for follow-up examination after completed treatment for conditions other than malignant neoplasm (principal) | CPT/HCPCS: 44970; 99024; 99223 ==

== ENCOUNTER 2024-04-30 10:00 | Outpatient (AMB) | payer OTHER, SELFPAY ==
--- NOTE | 2024-04-30 10:01 | MHC.OFFVIS ---
Intake Visit Reasons: s/p appendectomy Intake Note: Patient here s/p appendectomy on 04-23-2024. Reports incisions healing well. Patient c/o: itch along incision. 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 Chairez. Patient was doing well. She is tolerating a diet. Having regular bowel habits. She has minimal incisional discomfort. She is increasing her activity level. [facility] Social History Household Members: Spouse Housing: House Are you a primary adult caregiver to a significant other at home: No Do you presently have visiting nurse or other home services: No Comment: SSA 00 Patient Tobacco Use Status: Never used Tobacco service: No Physical Exam GI Other: Abdomen corpulent, soft, os incisions clean dry and intact Assessment & Plan Assessment & Plan (1) Postop check: Code(s): Z09 - Encounter for follow-up examination after completed treatment for conditions other than malignant neoplasm Category: Surgical Plan Patient was doing well and will otherwise follow-up p.r.n.. All questions answered Medications: Discontinued hydrocodone-acetaminophen 5-325 mg Partial Fill upon patient request. Discontinued Reason: Patient no longer taking 1 tab PO Q4-6H PRN 30 tabs 0RF pain Coding Level of Care Code Global (35735) Diagnoses Postop check Z09
== END 2024-04-30 10:11 | disposition home or self-care (01) ==
PROVIDERS: PCP Physician Assistant; Visit Provider Surgery
DX: Z09 Encounter for follow-up examination after completed treatment for conditions other than malignant neoplasm (principal)
CPT/HCPCS: 99024

== ENCOUNTER → 2024-04-30 10:00 | Outpatient (BNVA) | payer OTHER, SELFPAY | PROVIDERS: PCP Physician Assistant; Visit Provider Surgery ==